=== PATIENT | male | born 1940 | race Caucasian/White ===

== ENCOUNTER 2019-06-07 10:36 | Outpatient (CLI) | payer MEDICARE, OTHER ==
[2019-06-07 10:55] LABS: BASOPHILS % (AUTO) 0.6 %; EOSINOPHILS # (AUTO) 0.2 10^3/uL (0.0-0.7); EOSINOPHILS % (AUTO) 3.2 %; HGB - HEMOGLOBIN 15.7 g/dL (14.0-18.0); LYMPHOCYTES # (AUTO) 2.4 10^3/uL (1.5-3.5); LYMPHOCYTES % (AUTO) 49.6 %; MEAN CORPUSCULAR HEMOGLOBIN 31.2 pg (27.0-31.0); MEAN CORPUSCULAR HGB CONC 33.5 g/dL (32.0-36.0); MEAN PLATELET VOLUME 9.8 fL (7.4-11.4); MONOCYTES # (AUTO) 0.6 10^3/uL (0.0-1.0); MONOCYTES % (AUTO) 12.4 %; NEUTROPHILS # (AUTO) 1.6 10^3/uL (1.5-6.6); PLT - PLATELET COUNT 216 10^3/uL (130-450); RED BLOOD COUNT 5.03 10^6/uL (4.70-6.10); RED CELL DISTRIBUTION WIDTH 13.4 % (12.0-15.0); WHITE BLOOD COUNT 4.8 x10^3/uL (4.8-10.8)
[2019-06-07 11:13] LABS: ALBUMIN/GLOBULIN RATIO 1.2 (1.0-2.2); ALKALINE PHOSPHATASE 72 IU/L (42-121); ALT ALANINE AMINOTRANSFERASE 33 IU/L (10-60); AST ASPARTATE AMINOTRANSFERASE 25 IU/L (10-42); BILIRUBIN,TOTAL 0.8 mg/dL (0.2-1.0); BUN - BLOOD UREA NITROGEN 13 mg/dL (6-20); CALCIUM 9.1 mg/dL (8.5-10.3); CARBON DIOXIDE - CO2 25 mmol/L (21-32); CHLORIDE 106 mmol/L (101-111); CHOL/HDL RATIO 5.5 (<5.0); CHOLESTEROL 220 mg/dL; GFR - MDRD 73 (>89); GLUCOSE 116 mg/dL (70-100); HDL CHOLESTEROL 40 mg/dL; LDL CHOLESTEROL,CALCULATED 154 mg/dL; LDL/HDL RATIO 3.9 (<3.6); SODIUM 139 mmol/L (135-145); TOTAL PROTEIN 7.4 g/dL (6.7-8.2); VLDL CHOLESTEROL 26 mg/dL
[2019-06-07 11:55] LABS: THYROID STIMULATING HORMONE 1.27 uIU/mL (0.34-5.60)
[2019-06-07 11:57] LABS: FREE T4 (FREE THYROXINE) 0.81 ng/dL (0.58-1.64)
--- NOTE | 2019-06-07 13:20 | XRAY Report ---
Reason: PERIPHERAL VASCULAR DISEASE, UNSPECIFIED Procedure Date: 06/07/2019 Accession Number: [id number] / [id number] Procedure: XR - Lumbar Spine 2 View CPT Code: FULL RESULT: EXAM: LUMBOSACRAL SPINE RADIOGRAPHY EXAM DATE: 06/07/2019 12:18 PM. CLINICAL HISTORY: Peripheral vascular disease, unspecified. Increasing chronic lower back pain. COMPARISONS: None. TECHNIQUE: 3 views. FINDINGS: Alignment: . No spondylolisthesis or scoliosis. Bones: Five [id number] lumbar vertebral bodies are present. No fractures or bone lesions. Disks: Moderate disk space narrowing mid to lower lumbar spine. Facets: Bony bridging of the vertebral bodies throughout the lumbar spine. Sacroiliac Joints: Bilateral mild to moderate subchondral sclerotic changes. Soft Tissues: Normal. The visualized bowel gas pattern is normal. IMPRESSION: Bony bridging throughout the lumbar spine. Moderate degenerative disk space narrowing lower lumbar spine. [facility]
--- NOTE | 2019-06-07 14:27 | Ultrasound Report ---
Reason: PERIPHERAL VASCULAR DISEASE, UNSPECIFIED Procedure Date: 06/07/2019 Accession Number: [id number] / [id number] Procedure: US - Duplex Lwr Ext Arterial Bilat CPT Code: FULL RESULT: EXAM: Bilateral Lower Extremity Arterial Doppler Ultrasound EXAM DATE: 06/07/2019 12:03 PM. CLINICAL HISTORY: Peripheral vascular disease, unspecified. Claudication. COMPARISON: None. TECHNIQUE: Real-time sonographic vascular imaging was performed by the hammerer tab, utilizing color-flow, Doppler flow, and spectral analysis. Multiple software support representative static images were saved for review. FINDINGS: Grayscale images reveal echogenic plaque in the bilateral lower extremity arteries. There is a segmental significant increase in velocity within the right proximal superficial femoral artery which increases from 133-282 cm/s with a biphasic waveform. No other segmental velocity present. Right Leg: SALES ASSISTANT DISPLAYS: PSV 126 cm/sec. PSFA: PSV 282 cm/sec. Biphasic waveform. MSFA: PSV 71 cm/sec. Biphasic waveform. DSFA: PSV 40 cm/sec. Biphasic waveform. PFA: PSV 118 cm/sec. Triphasic waveform. POP: PSV 41 cm/sec. Biphasic waveform. USMAN: PSV 62 cm/sec. Biphasic waveform. CUPOLA MELTER: PSV 53 cm/sec. Biphasic waveform. PER: PSV 36 cm/sec. Biphasic waveform. DPA: PSV 25 cm/sec. Biphasic waveform. Left Leg: SALES ASSISTANT DISPLAYS: PSV 181 cm/sec. Biphasic waveform. PSFA: PSV 100 cm/sec. Biphasic waveform. MSFA: PSV 100 cm/sec. Triphasic waveform. DSFA: PSV 77 cm/sec. Biphasic waveform. PFA: PSV 152 cm/sec. Biphasic waveform. POP: PSV 54 cm/sec. Biphasic waveform. USMAN: PSV 103 cm/sec. Biphasic waveform. CUPOLA MELTER: PSV 92 cm/sec. Biphasic waveform. PER: PSV 45 cm/sec. Biphasic waveform. DPA: PSV 64 cm/sec. Biphasic waveform. IMPRESSION: 1. Evidence of a greater than 50% stenosis within the right proximal superficial femoral artery. 2. Generalized atherosclerotic plaque without other focal significant stenosis. [facility]
== END 2019-06-07 10:37 | disposition home or self-care (01) ==
LOC: LAB 10:36 → DI 10:37
PROVIDERS: ATTEND Family Medicine
DX: I70.203 Unspecified atherosclerosis of native arteries of extremities, bilateral legs (principal); I73.9 Peripheral vascular disease, unspecified; M51.36 Other intervertebral disc degeneration, lumbar region
CPT/HCPCS: 36415; 72100; 80053; 80061; 83721; 84439; 84443; 84481; 85025; 93925

== ENCOUNTER 2019-06-14 10:30 | Outpatient (CLI) | payer OTHER ==
[2019-06-14] MEDS ORDERED: IOVERSOL 320 100 ML VIAL IVP ONE ×2 (10:31→10:51)
--- NOTE | 2019-06-14 13:50 | CT Report ---
Reason: CLAUDICATION DUE TO PVD Procedure Date: 06/14/2019 Accession Number: [id number] / [id number] Procedure: CT - ANGIO LOWER EXT W/WO - B/L CPT Code: Final Report FULL RESULT: EXAM: CT ANGIOGRAM BILATERAL LOWER EXTREMITY WITH CONTRAST DATE: 06/14/2019 11:18 AM HISTORY: Claudication due to peripheral vascular disease. COMPARISONS: Ultrasound from yesterday TECHNIQUE: Thin-section axial images were acquired of the lower extremities from the hips to the ankles in arterial phase after administration of intravenous contrast. IV contrast: OPTI 320 120ML. Post-processing: Multiplanar MPR and 3D MIP reformats. Other: None. In accordance with CT protocol optimization, one or more of the following dose reduction techniques were utilized for this exam: automated exposure control, adjustment of mA and/or KV based on patient size, or use of iterative reconstructive technique. FINDINGS: Bones: No fractures. A lucent lesion with a sclerotic rim in the right medial ilium is likely a benign hemangioma or lipoma. It measures 2.1 cm. Degenerative changes in the lower lumbar spine. Joints: Severe arthritis is at the right first metatarsophalangeal joint. Moderate left SI joint osteoarthritis is seen. The patient has mild bilateral knee osteoarthritis. Mild bilateral hip osteoarthritis is present. Musculature: Normal. No fatty atrophy. Vascular Structures: Arterial calcifications indicate atherosclerosis. The right common iliac, internal iliac, external iliac and common femoral arteries do not demonstrate any significant stenoses. The profunda femoral artery is unremarkable. There is approximately one-third stenosis of the proximal right superficial femoral artery due to calcified and noncalcified plaque. The upper portion superficial femoral artery demonstrates some atherosclerotic band (5/135). There is no stenosis in the distal superficial femoral artery or the popliteal artery. The patient has three-vessel runoff to the right ankle. The left common iliac artery has a 50% stenosis over the proximal 1.6 cm of the vessel due to noncalcified atherosclerotic plaque inferiorly. The internal iliac artery has a 75% stenosis due to noncalcified plaque. The external iliac artery has a one-third stenosis distally due to calcified and noncalcified atherosclerotic plaque. The left common femoral and profunda femoral arteries are patent. No clinically significant stenoses in the left superficial femoral and popliteal arteries. The patient has three-vessel runoff to the left ankle. Other: Sigmoid diverticulosis is present. A calcified loose body in the right popliteus tendon sheath measures 1.1 cm. The patient has moderate to severe right prepatellar bursitis. Mild subcutaneous edema is in the bilateral calves. IMPRESSION: 1. Multifocal mild osteoarthritis. 2. One-third stenosis of the proximal right superficial femoral artery. 3. 50% stenosis of the left common iliac artery. 4. 75% stenosis of the left internal iliac artery. 5. One-third stenosis of the left external iliac artery. [facility] The call report notification system was initiated by Dr. Cyndie Mckeon at 01:48 PM on 06/14/2019. The above call report findings were discussed with Jaleel Terry by Dr. Cyndie Mckeon at 01:54 PM on 06/14/2019.
== END 2019-06-14 10:31 | disposition home or self-care (01) ==
LOC: DI 10:30
PROVIDERS: ATTEND Family Medicine
DX: I73.9 Peripheral vascular disease, unspecified (principal); I70.8 Atherosclerosis of other arteries
CPT/HCPCS: 73706; Q9967

== ENCOUNTER 2023-02-09 10:50 | Outpatient (CLI) | payer MEDICARE, BC ==
--- NOTE | 2023-02-09 13:58 | Ultrasound Report ---
PROCEDURE: Retroperitoneal Limited INDICATIONS: AAA TECHNIQUE: Real time scanning was performed of the aorta and iliac arteries, with image documentatio n. COMPARISON: None. FINDINGS: Aorta: Proximal aortic diameter measures 3.0 x 2.5 cm. Mid-aorta is not well-visualized due to over lying bowel gas. Distal aortic diameter is 4.8 x 4.5 cm. Iliac arteries: Common iliac arteries are not well-visualized due to overlying bowel gas. IMPRESSION: Distal abdominal aortic aneurysm measuring up to 4.8 cm in diameter. Recommend 6 month follow-up ultr asound. Consider referral to interventional radiology or vascular surgery. Reviewed by: Blade Mendoza MD on 02/09/2023 1:57 PM PDT Approved by: Blade Mendoza MD on 02/09/2023 1:57 PM PDT Station ID: [id number]
== END 2023-02-09 10:51 | disposition home or self-care (01) ==
LOC: DI 10:50
PROVIDERS: ATTEND Family Medicine
DX: I71.6 Thoracoabdominal aortic aneurysm, without rupture (principal)